=== PATIENT | male | born 1995 | race Caucasian/White ===

== ENCOUNTER 2016-09-19 13:00 | Emergency (ER) | payer OTHER ==
[~2016-09-19] VITALS: Ht 170.2 cm; Wt 81.6 kg
[2016-09-19 13:10] VITALS: BP 130/80
[2016-09-19] MEDS ORDERED: HYDROCODONE/APAP 5/325MG 1 EACH TABLET ONE (14:48)
[2016-09-19] MEDS ORDERED: LIDOCAINE VISCOUS 2% UD 15 ML UDC ONE (14:48)
[2016-09-19] MEDS ORDERED: LIDOCAINE 1%-EPI 1:100,000 20 ML VIAL TP ONE (15:00)
[2016-09-19] MEDS ORDERED: HYDROCODONE/APAP 5/325MG 1 EACH TABLET PO ONE (15:00)
== END 2016-09-19 15:51 | disposition home or self-care (01) ==
LOC: ER 13:01
DX: L05.01 Pilonidal cyst with abscess (principal)
CPT/HCPCS: 10080; 99283; A4606; Z7610

== ENCOUNTER 2016-09-21 11:49 | Emergency (ER) | payer OTHER ==
[~2016-09-21] VITALS: Ht 170.2 cm; Wt 86.2 kg
[2016-09-21 12:09] VITALS: BP 104/69
== END 2016-09-21 12:32 | disposition home or self-care (01) ==
LOC: ER 11:50
DX: Z48.01 Encounter for change or removal of surgical wound dressing (principal); Z98.890 Other specified postprocedural states
CPT/HCPCS: A4606; A6407; Z7610

== ENCOUNTER 2016-09-23 05:57 | Emergency (ER) | payer OTHER ==
[~2016-09-23] VITALS: Ht 172.7 cm; Wt 77.1 kg
[2016-09-23 06:15] VITALS: BP 138/84
== END 2016-09-23 06:39 | disposition home or self-care (01) ==
LOC: ER 05:57
DX: Z48.01 Encounter for change or removal of surgical wound dressing (principal)
CPT/HCPCS: 99281; A4606; Z7610; Z7502

== ENCOUNTER 2016-12-18 12:34 | Emergency (ER) | payer OTHER ==
[~2016-12-18] VITALS: Ht 170.2 cm; Wt 81.6 kg
[2016-12-18 12:34] VITALS: BP 126/72
[2016-12-18 12:53] LABS: APPEARANCE,URINE Clear (CLEAR); BILIRUBIN,URINE Negative (NEGATIVE); BLOOD, URINE Trace-intact Ery/uL (NEGATIVE); COLOR,URINE Yellow (YELLOW); KETONES,URINE Negative (NEGATIVE); LEUKOCYTE ESTERASE ,URINE Small (NEGATIVE); NITRITE, URINE Negative (NEGATIVE); PH,URINE 5.5 (5.0-8.0); PROTEIN,URINE Negative (NEGATIVE); UGLUCOSE Negative (NEGATIVE); UROBILINOGEN,URINE 0.2 EU/dL (0.2)
[2016-12-18 12:58] LABS: BACTERIA,URINE None seen /HPF (None Seen); RBC,URINE 0-3 /HPF (0-2); SQUAMOUS EPITHELIAL CELL,UR Few /HPF (None Seen); WBC,URINE 21-50 /HPF (0-3)
== END 2016-12-18 13:14 | disposition home or self-care (01) ==
LOC: ER 12:35
DX: N34.2 Other urethritis (principal)
CPT/HCPCS: 81001; 87086; 96372; 99284; A4606; J0696; J3490; Z7610; 81000-TC

== ENCOUNTER 2017-01-25 14:01 | Emergency (ER) | payer OTHER ==
[~2017-01-25] VITALS: Ht 170.2 cm; Wt 81.6 kg
[2017-01-25 14:04] VITALS: BP 142/74
== END 2017-01-25 14:23 | disposition home or self-care (01) ==
LOC: ER 14:06
DX: S86.801A Unspecified injury of other muscle(s) and tendon(s) at lower leg level, right leg, initial encounter (principal); Z98.890 Other specified postprocedural states; X58.XXXA Exposure to other specified factors, initial encounter; Y93.89 Activity, other specified; Y92.89 Other specified places as the place of occurrence of the external cause; Y99.8 Other external cause status
CPT/HCPCS: 99281; A4606; Z7610; Z7502

== ENCOUNTER 2017-10-28 16:52 | Emergency (ER) | payer OTHER ==
[~2017-10-28] VITALS: Ht 170.2 cm; Wt 79.4 kg
[2017-10-28 16:52] VITALS: BP 120/60
[2017-10-28] MEDS ORDERED: AZITHROMYCIN 250 MG TABLET ONE (17:49)
[2017-10-28] MEDS ORDERED: CEFTRIAXONE 1 G VIAL ONE (17:49)
[2017-10-28] MEDS ORDERED: LIDOCAINE /MPF 1% VIAL 5 ML VIAL ONE (17:50)
[2017-10-28] MEDS ORDERED: CEFTRIAXONE 1 G VIAL IM ONE (18:00)
[2017-10-28] MEDS ORDERED: AZITHROMYCIN 250 MG TABLET PO ONE (18:00)
== END 2017-10-28 18:20 | disposition home or self-care (01) ==
LOC: ER 16:53
DX: Z20.2 Contact with and (suspected) exposure to infections with a predominantly sexual mode of transmission (principal); Z98.890 Other specified postprocedural states
CPT/HCPCS: 87491; 87591; A4606; J0696; J3490; Z7610

== ENCOUNTER 2018-10-26 12:40 | Emergency (ER) | payer OTHER ==
[~2018-10-26] VITALS: Ht 170.2 cm; Wt 78.9 kg
[2018-10-26] MEDS ORDERED: PENICILLIN G BENZATHINE 2.4 MMU/4 ML ML IM ONE ×2 (13:54→14:00)
[2018-10-26 14:30] VITALS: BP 128/67
== END 2018-10-26 14:32 | disposition home or self-care (01) ==
LOC: ER 12:40
DX: Z20.2 Contact with and (suspected) exposure to infections with a predominantly sexual mode of transmission (principal); Z98.890 Other specified postprocedural states
CPT/HCPCS: 96372; 99283; J0558

== ENCOUNTER 2019-02-12 22:38 | Emergency (ER) | payer OTHER ==
[~2019-02-12] VITALS: Ht 170.2 cm; Wt 79.4 kg
[2019-02-13 01:16] VITALS: BP 125/70
== END 2019-02-13 01:16 | disposition home or self-care (01) ==
LOC: ER 22:41
DX: S93.492A Sprain of other ligament of left ankle, initial encounter (principal); Z98.890 Other specified postprocedural states; X58.XXXA Exposure to other specified factors, initial encounter; Y93.89 Activity, other specified; Y92.89 Other specified places as the place of occurrence of the external cause; Y99.8 Other external cause status
CPT/HCPCS: 73610-TC